=== PATIENT | male | born 1950 | race Caucasian/White ===

== ENCOUNTER 2017-12-04 15:29 | Inpatient (IN) | payer MEDICARE, OTHER ==
[~2017-12-04] VITALS: Ht 175.3 cm; Wt 86.4 kg
--- NOTE | ~2017-12-04 | EC ---
PATIENT:RENETTA DASILVA DATE OF SERVICE: 12/05/17 SEX: M MEDICAL RECORD: [id number] DATE OF : [birth year] LOCATION:D.M2 D.213 AGE OF PATIENT: 67 ADMISSION DATE: 12/05/17 REFERRING PHYSICIAN: INTERPRETING PHYSICIAN: ANIA HURST MD ECHOCARDIOGRAM REPORT ECHO CHARGES 4 ECHO COMPLETE Date: 12/05 CLINICAL DIAGNOSIS: TIA HX OF HTN ECHOCARDIOGRAPHIC MEASUREMENTS (adult normal given) AC root (d.<3.7cm) 3.4 cm LV Septum d (<1.2 cm> 1.4 cm Valve Excursion 1.7 cm LV Septum (systole) 1.6 cm Left Atria (s.<4.0cm> 3.9 cm LVPW d(<1.2cm) 1.4 cm RV (d.<2.3cm) 4.0 cm LVPW (sytole) 1.7 cm LV diastole(<5.6CM) 5.1 cm MV E-F(>70mm/sec) cm LV systole 3.9 cm LVOT Diameter 2.1 cm MV exc.(>10mm) 2.2 cm Est.ejection fraction (50-75%) % DOPPLER: LVIT cm/sec A 81.0 cm/sec E 66.0 cm/sec LA cm/sec RVSP 22 mmHg LVOT 80 cm/sec AOP1/2T m/s Asc. Ao 116 cm/sec RVOT 83 cm/sec RA cm/sec PA 113 cm/sec AV Gradient Peak 5.41 mmHg AV Mean 2.82 mmHg AV Area 2.4 cm MV Gradient Peak 2.87 mmHg MV Mean 1.24 mmHg MV Area cm COMMENTS: Wildfire Prevention Specialist: Hayde FENG Demolition Crane Operator: 1 Dr. Hurst TAPE# PACS Pericardial Effusion N DATE OF SERVICE: 12/05/2017 ECHOCARDIOGRAM FINDINGS: 1. Left ventricular chamber size is within normal limits. Left ventricular systolic function is normal. Overall ejection fraction estimated at 55%. 2. Left atrium, right atrium, and right ventricle chamber sizes are within normal limits. 3. Valvular structures have normal structure and motion. ECHOCARDIOGRAM REPORT [id number] RENETTA DASILVA 4. Doppler interrogation only reveals mild tricuspid regurgitation, no other valvular insufficiency or stenosis. Pulmonary systolic pressure is normal estimated 22 mmHg. 5. No evidence of pericardial effusion or left ventricular thrombus. 6. No cardiac source of neurologic emboli. TRANSINT:[id number] Voice Confirmation ID: [id number] DOCUMENT ID: [id number] ANIA HURST MD at 1843 CC: [id number] DICTATION DATE: 12/05/17 1645 TEST CARRIER: 12/05/17 193 DIS IN 12/06/17 [facility] [address] [id number]
[2017-12-04] MEDS ORDERED: AVAPRO300 MG PO (15:36)
[2017-12-04 16:22] LABS: BASOPHILS 0.6 % (0-2); EOSINOPHILS 0.4 % (0-7); HEMATOCRIT 30.8 % (42.0-54.0); HEMOGLOBIN 10.4 g/dL (13.5-17.5); IMMATURE GRANULOCYTES 0.2 % (0-5); MCH 36.5 pg (26.0-34.0); MCHC 33.8 g/dL (31.0-37.0); MCV 108.1 fL (80.0-100.0); MEAN PLATELET VOLUME 10.4 fL (7.4-10.4); MONOCYTES 13.3 % (2-11); NEUTROPHILS 58.5 % (40-80); PLATELET COUNT 219 10x3/uL (130-400); RBC 2.85 10x6/uL (4.20-6.10); RDW 14.3 % (11.5-14.5); WBC 4.7 10x3/uL (4.8-10.8)
[2017-12-04 16:33] LABS: APTT 31.3 SECONDS (22.8-39.4); INR 0.99 (0.85-1.17); PROTIME 12.7 SECONDS (11.6-15.0)
[2017-12-04 16:34] LABS: D-DIMER-QUANTITATIVE 0.42 ug/mLFEU (0.20-0.54)
[2017-12-04 17:04] LABS: ALBUMIN 3.4 g/dL (3.4-5.0); ALKALINE PHOSPHATASE 151 U/L (46-116); ALT (SGPT) 58 U/L (10-68); BILIRUBIN - TOTAL 0.56 mg/dL (0.2-1.3); CALC OSMOLALITY 283 mosm/kg (275-300); CALCIUM 8.7 mg/dL (8.5-10.1); CARBON DIOXIDE 28.9 mmol/L (21.0-32.0); CHLORIDE - SERUM 103 mmol/L (98-107); CREATININE - SERUM 1.8 mg/dL (0.6-1.3); GLUCOSE 108 mg/dL (74-106); POTASSIUM - SERUM 4.1 mmol/L (3.5-5.1); PROTEIN - SERUM 6.9 g/dL (6.4-8.2); SODIUM 140 mmol/L (136-145); UREA NITROGEN 23 mg/dL (7-18); eGFR NON AFRICAN AMERICAN 40 mL/min (90-120)
[2017-12-04 17:19] LABS: AMYLASE - SERUM 70 U/L (25-115); C-REACTIVE PROTEIN 0.4 mg/dL (0.0-0.9); CREATINE KINASE 76 UL (21-232); LIPASE 264 U/L (73-393); PRO BNP 994 pg/mL (0-125); THYROID STIMULATING HORMONE 1.17 uIU/mL (0.36-3.74)
[2017-12-04 17:23] LABS: TROPONIN-I < 0.017 ng/mL (0.000-0.060)
[2017-12-04 17:49] LABS: APPEARANCE CLEAR (CLEAR); BILIRUBIN NEGATIVE (NEGATIVE); COLOR DK YELLOW (YELLOW); GLUCOSE NEGATIVE (NEGATIVE); KETONE NEGATIVE (NEGATIVE); NITRITE NEGATIVE (NEGATIVE); PROTEIN TRACE mg/dL (NEGATIVE); SPECIFIC GRAVITY 1.015 (1.005-1.020); UROBILINOGEN NORMAL (NORMAL)
[2017-12-04 17:50] LABS: BACTERIA FEW /hpf (NONE SEEN); RED CELLS - URINE OCC /hpf (0-5); WHITE CELLS - URINE OCC /hpf (0-5)
[2017-12-04] MEDS ORDERED: PERCOCET 10/3251 TA1 PO (23:35)
[2017-12-04] MEDS ORDERED: CBD (23:37)
[2017-12-04] MEDS ORDERED: VITAMIN B-1000 MCG/M IM (23:37)
[2017-12-04 23:46] VITALS: BMI 26.9
[2017-12-05] VITALS: BP 128/78; BP 132/83
[2017-12-05 04:00] VITALS: BP 132/83
[2017-12-05 08:13] VITALS: BP 134/87
[2017-12-05 11:52] VITALS: BP 138/86
[2017-12-05 13:05] VITALS: Ht 175.3 cm; Wt 86.4 kg
[2017-12-05 16:29] VITALS: BP 138/81
[2017-12-05 22:28] VITALS: BP 127/75
[2017-12-06 00:41] VITALS: BP 128/81
[2017-12-06 05:44] VITALS: BP 127/74
[2017-12-06 05:57] LABS: ANION GAP 10.7 mmol/L (8-16); CALCIUM 8.3 mg/dL (8.5-10.1); CARBON DIOXIDE 26.1 mmol/L (21.0-32.0); CHOL - HDL RATIO 2.8 ratio (2.3-4.9); LDL-HDL RATIO 1.4 ratio (1.5-3.5); POTASSIUM - SERUM 3.8 mmol/L (3.5-5.1)
[2017-12-06 06:04] LABS: CREATININE - SERUM 1.2 mg/dL (0.6-1.3); MAGNESIUM - SERUM 1.7 mg/dL (1.8-2.4)
[2017-12-06 06:44] LABS: BASOPHILS 0.8 % (0-2); EOSINOPHILS 0.8 % (0-7); HEMATOCRIT 29.1 % (42.0-54.0); HEMOGLOBIN 9.5 g/dL (13.5-17.5); IMMATURE GRANULOCYTES 0.3 % (0-5); LYMPHOCYTES 35.8 % (15-50); MCH 35.4 pg (26.0-34.0); MCHC 32.6 g/dL (31.0-37.0); MCV 108.6 fL (80.0-100.0); MEAN PLATELET VOLUME 11.8 fL (7.4-10.4); MONOCYTES 14.3 % (2-11); PLATELET COUNT 228 10x3/uL (130-400); RBC 2.68 10x6/uL (4.20-6.10); RDW 14.3 % (11.5-14.5); WBC 3.9 10x3/uL (4.8-10.8)
[2017-12-06 08:50] VITALS: BP 144/91
[2017-12-06 09:18] LABS: FOLATE (FOLIC ACID) - SERUM >20.0 ng/mL (>3.0)
[2017-12-06 13:04] VITALS: BP 133/82
[2017-12-06] MEDS ORDERED: LIPITOR40 MG PO (15:13)
[2017-12-06] MEDS ORDERED: BAYER CHEWABLE81 MG PO (15:13)
== END 2017-12-06 16:53 | disposition home or self-care (01) | DRG 65 ==
LOC: D.ER 15:29 → D.M2 22:27 → OBSVTIME 22:27 → D.M2 12-05 13:24
PROVIDERS: Emergency Medicine; Family Medicine; Internal Medicine Nephrology
DX: I63.9 Cerebral infarction, unspecified (principal); N17.9 Acute kidney failure, unspecified; R40.2363 Coma scale, best motor response, obeys commands, at hospital admission; R40.2143 Coma scale, eyes open, spontaneous, at hospital admission; R40.2253 Coma scale, best verbal response, oriented, at hospital admission; I10 Essential (primary) hypertension; F10.20 Alcohol dependence, uncomplicated; D53.9 Nutritional anemia, unspecified; M75.102 Unspecified rotator cuff tear or rupture of left shoulder, not specified as traumatic; R20.2 Paresthesia of skin

== ENCOUNTER → 2018-04-09 09:42 | Outpatient (CLI) | payer MEDICARE, OTHER ==
[2017-12-05 13:05] VITALS: BMI 26.9
[~2018-04-09 09:42] MED LIST: AVAPRO300 MG PO; BAYER CHEWABLE81 MG PO; CBD; LIPITOR40 MG PO; PERCOCET 10/3251 TA1 PO; VITAMIN B-1000 MCG/M IM
== END | disposition home or self-care (01) ==
LOC: D.US 09:42
DX: R74.8 Abnormal levels of other serum enzymes (principal)